=== PATIENT | female | born 1955 | race Caucasian/White ===

== ENCOUNTER 2019-04-25 | Emergency (ER) | payer SELFPAY ==
[~2019-04-25] MED LIST: GABAPENTIN300 M2 PO; GLIPIZIDE5 M2 PO; LISINOPRIL20 M1 PO; LOVASTATIN40 M1 PO; METFORMIN HCL1000 MG PO; NAPROXEN500 MG PO
[2019-04-25] MEDS ORDERED: ATORVASTATIN CA40 MG PO (04:28)
[2019-04-25] MEDS ORDERED: CLOPIDOGREL75 MG PO (04:29)
[2019-04-25] MEDS ORDERED: LOPID600 MG PO (04:30)
[2019-04-25] MEDS ORDERED: HYDROCHLOROT25 MG PO (04:31)
[2019-04-25 05:07] LABS: IMMATURE GRANULOCYTES 2.1 % (0.0-5.0); MEAN CELL VOLUME 81.1 fL CALC (80.0-100.0); MEAN CORPUSCULAR HGB 25.5 pG CALC (26.0-32.0); MEAN CORPUSCULAR HGB CONC 31.4 g/L CALC (32.0-36.0); NEUT# 18.32 thou/uL (2.00-7.15); RED BLOOD COUNT 4.44 mill/uL (4.20-5.60); RED CELL DISTRI WIDTH 15.2 % (11.5-15.5)
[2019-04-25 05:08] LABS: HEMOGLOBIN 11.3 g/dl (12.0-16.0)
[2019-04-25 05:15] LABS: CREATININE 1.8 mg/dL (0.5-1.0); MAGNESIUM 1.6 mg/dL (1.6-2.3)
[2019-04-25 05:17] LABS: ETHYL ALCOHOL 0 mg/dl (0-30)
[2019-04-25 05:21] LABS: ALBUMIN 4.2 g/dL (3.2-5.0); BILIRUBIN, TOTAL 0.6 mg/dL (0.0-1.4); POTASSIUM 5.6 mmol/l (3.5-5.1); TOTAL PROTEIN 7.7 g/dL (6.3-8.2)
[2019-04-25 05:29] LABS: URINE BILIRUBIN - DIPSTICK NEGATIVE (NEGATIVE); URINE BLOOD DIPSTICK MODERATE (NEGATIVE); URINE COLOR YELLOW; URINE GLUCOSE - DIPSTICK >=1000 mg/dL (NEGATIVE); URINE KETONE 15 mg/dL (NEGATIVE); URINE PROTEIN - DIPSTICK 100 mg/dL (NEG-TRACE); URINE UROBILINOGEN - DIPSTICK 0.2 E.U./dL (0.2)
[2019-04-25 05:33] LABS: BARBITURATES NEGATIVE (NEGATIVE); COCAINE NEGATIVE (NEGATIVE); METHADONE NEGATIVE (NEGATIVE); OXCYCODONE NEGATIVE (NEGATIVE); TETRAHYDROCANNABIONOL NEGATIVE (NEGATIVE); TRICYLIC ANTIDEPRESSANTS NEGATIVE (NEGATIVE)
[2019-04-25 05:35] LABS: URINE LEUK ESTERASE NEGATIVE (NEGATIVE); URINE NITRITE - DIPSTICK POSITIVE (Negative)
[2019-04-25 05:40] LABS: URINE EPITHELIAL CELLS MODERATE EPI/hpf (0-FEW); URINE RBC >100 RBC/hpf (0-5)
[2019-04-25 05:41] LABS: URINE BACTERIA MANY hpf
[2019-04-25 05:48] LABS: TSH, 3RD GENERATION 0.98 uIU/mL (0.47 - 4.68)
--- NOTE | 2019-04-26 17:15 | NUR ---
PRELIMINARY RESULTS CALLED TO BRIANNA POTTER AT [facility] (+) COCCI IN 1/4 VIALS. PHARMACY WILL FOLLOW FOR FINAL C+S.
== END 2019-04-25 09:14 | disposition short-term general hospital (02) | DRG 871 ==
PROVIDERS: Family Medicine
PROC: 0T9B70Z Drainage of Bladder with Drainage Device, Via Natural or Artificial Opening (ICD-10-PCS; principal; 2019-04-25)
DX: A41.9 Sepsis, unspecified organism (principal); I21.4 Non-ST elevation (NSTEMI) myocardial infarction; J18.9 Pneumonia, unspecified organism; N39.0 Urinary tract infection, site not specified; R65.20 Severe sepsis without septic shock; E11.65 Type 2 diabetes mellitus with hyperglycemia; I10 Essential (primary) hypertension; B96.20 Unspecified Escherichia coli [E. coli] as the cause of diseases classified elsewhere; Z79.84 Long term (current) use of oral hypoglycemic drugs
CPT/HCPCS: J0131; J0692; J1644

== ENCOUNTER 2019-07-29 16:30 | Emergency (ER) | payer MEDICAID ==
[~2019-07-29 16:30] MED LIST changes: +ATORVASTATIN CA40 MG PO; +CLOPIDOGREL75 MG PO; +HYDROCHLOROT25 MG PO; +LOPID600 MG PO
[2019-07-29] MEDS ORDERED: FUROSEMIDE20 MG PO (19:09)
[2019-07-29] MEDS ORDERED: ASPIRIN81 MG PO (19:09)
[2019-07-29] MEDS ORDERED: GLIPIZIDE10 MG PO (19:09)
[2019-07-29] MEDS ORDERED: K-TAB20 MEQ PO (19:09)
[2019-07-29] MEDS ORDERED: PROTONIX40 M4 PO (19:12)
[2019-07-29] MEDS ORDERED: FERRAPLUS 90 PO (19:13)
[2019-07-29] MEDS ORDERED: LISINOPRIL20 MG PO (19:14)
[2019-07-29 19:26] LABS: HEMATOCRIT 30.6 % (37.0-47.0); HEMOGLOBIN 9.5 g/dl (12.0-16.0); IMMATURE GRANULOCYTES 0.7 % (0.0-5.0); MEAN CELL VOLUME 84.1 fL CALC (80.0-100.0); MEAN CORPUSCULAR HGB 26.1 pG CALC (26.0-32.0); NEUT# 5.57 thou/uL (2.00-7.15); RED BLOOD COUNT 3.64 mill/uL (4.20-5.60); RED CELL DISTRI WIDTH 15.4 % (11.5-15.5)
[2019-07-29 19:40] LABS: ALBUMIN 3.8 g/dL (3.2-5.0); BILIRUBIN, TOTAL 0.2 mg/dL (0.0-1.4); POTASSIUM 5.4 mmol/l (3.5-5.1); TOTAL PROTEIN 6.9 g/dL (6.3-8.2)
[2019-07-29 20:00] VITALS: BP 168/96
== END 2019-07-29 22:06 | disposition home or self-care (01) | DRG 812 ==
LOC: ED 16:30
PROVIDERS: Family Medicine
DX: D64.9 Anemia, unspecified (principal); E11.22 Type 2 diabetes mellitus with diabetic chronic kidney disease; I12.9 Hypertensive chronic kidney disease with stage 1 through stage 4 chronic kidney disease, or unspecified chronic kidney disease; N18.9 Chronic kidney disease, unspecified; Z79.84 Long term (current) use of oral hypoglycemic drugs

== ENCOUNTER 2020-02-21 12:18 | Emergency (ER) | payer MEDICAID ==
[~2020-02-21] VITALS: Ht 154.9 cm; Wt 84.1 kg
[~2020-02-21 12:18] MED LIST changes: +ASPIRIN81 MG PO; +FERRAPLUS 90 PO; +FUROSEMIDE20 MG PO; +GLIPIZIDE10 MG PO; +K-TAB20 MEQ PO; +LISINOPRIL20 MG PO; +PROTONIX40 M4 PO
[2020-02-21 12:47] LABS: URINE BILIRUBIN - DIPSTICK NEGATIVE (NEGATIVE); URINE BLOOD DIPSTICK MODERATE (NEGATIVE); URINE COLOR YELLOW; URINE GLUCOSE - DIPSTICK NEGATIVE (NEGATIVE); URINE KETONE NEGATIVE (NEGATIVE); URINE LEUK ESTERASE NEGATIVE (NEGATIVE); URINE NITRITE - DIPSTICK NEGATIVE (Negative); URINE PH 5.5 (4.5-8.0); URINE PROTEIN - DIPSTICK NEGATIVE (NEG-TRACE); URINE UROBILINOGEN - DIPSTICK 0.2 E.U./dL (0.2)
[2020-02-21 13:05] LABS: ALBUMIN 4.3 g/dL (3.2-5.0); POTASSIUM 4.9 mmol/l (3.5-5.1); TOTAL PROTEIN 7.8 g/dL (6.3-8.2)
[2020-02-21 13:07] LABS: BILIRUBIN, TOTAL 0.3 mg/dL (0.0-1.4); HEMOGLOBIN 11.2 g/dl (12.0-16.0); IMMATURE GRANULOCYTES 0.6 % (0.0-5.0); MEAN CORPUSCULAR HGB 28.3 pG CALC (26.0-32.0); MEAN CORPUSCULAR HGB CONC 29.6 g/dL CAL (32.0-36.0); NEUT# 3.63 thou/uL (2.00-7.15); RED BLOOD COUNT 3.96 mill/uL (4.20-5.60)
[2020-02-21 13:10] LABS: HEMATOCRIT 37.9 % (37.0-47.0); MEAN CELL VOLUME 95.7 fL CALC (80.0-100.0)
[2020-02-21 13:34] LABS: TSH, 3RD GENERATION 0.66 uIU/mL (0.47 - 4.68)
[2020-02-21 14:10] VITALS: BP 154/65
[2020-02-21] MEDS ORDERED: ZPAK PO (14:30)
== END 2020-02-21 15:16 | disposition home or self-care (01) ==
LOC: ED 12:18
DX: E11.649 Type 2 diabetes mellitus with hypoglycemia without coma (principal); U07.1 COVID-19; J12.82 Pneumonia due to coronavirus disease 2019; I10 Essential (primary) hypertension; Z79.84 Long term (current) use of oral hypoglycemic drugs

== ENCOUNTER 2021-07-12 10:33 | Observation (INO) | payer MEDICAID ==
[2021-07-12] VITALS (16 sets, daily range): BP systolic 55–150; BP diastolic 11–63
[~2021-07-12] VITALS: Ht 154.9 cm; Wt 91.0 kg
[~2021-07-12 10:33] MED LIST changes: +ZPAK PO
[2021-07-12 12:47] LABS: MEAN CELL VOLUME 98.6 fL CALC (80.0-100.0); MEAN CORPUSCULAR HGB 29.3 pG CALC (26.0-32.0); MEAN CORPUSCULAR HGB CONC 29.8 g/dL CAL (32.0-36.0); NEUT# 4.74 thou/uL (2.00-7.15); RED BLOOD COUNT 2.08 mill/uL (4.20-5.60); RED CELL DISTRI WIDTH 14.4 % (11.5-15.5)
[2021-07-12 13:03] LABS: BILIRUBIN, TOTAL 0.2 mg/dL (0.0-1.4); POTASSIUM 4.7 mmol/l (3.5-5.1); TOTAL PROTEIN 7.3 g/dL (6.3-8.2)
[2021-07-12 13:04] LABS: CREATININE 4.9 mg/dL (0.5-1.0)
[2021-07-12 13:05] LABS: HEMATOCRIT 20.5 % (37.0-47.0); HEMOGLOBIN 6.1 g/dl (12.0-16.0)
[2021-07-13 00:17] VITALS: BP 155/54
[2021-07-13 00:52] VITALS: BP 144/49
[2021-07-13 03:15] VITALS: BP 141/48
[2021-07-13 05:30] LABS: MEAN CELL VOLUME 93.8 fL CALC (80.0-100.0); MEAN CORPUSCULAR HGB 29.6 pG CALC (26.0-32.0); MEAN CORPUSCULAR HGB CONC 31.6 g/dL CAL (32.0-36.0); RED BLOOD COUNT 4.22 mill/uL (4.20-5.60); RED CELL DISTRI WIDTH 14.3 % (11.5-15.5)
[2021-07-13 05:44] LABS: HEMATOCRIT 39.6 % (37.0-47.0); HEMOGLOBIN 12.5 g/dl (12.0-16.0)
[2021-07-13 05:47] LABS: CREATININE 4.8 mg/dL (0.5-1.0)
[2021-07-13 05:52] LABS: POTASSIUM 4.9 mmol/l (3.5-5.1)
[2021-07-13 07:12] VITALS: BP 111/54
[2021-07-13 10:18] VITALS: BP 133/68
[2021-07-13] MEDS ORDERED: METFORMIN500 M2 PO ×2 (10:52→13:33)
[2021-07-13] MEDS ORDERED: LASIX 40 MG TAB40 MG PO (11:04)
[2021-07-14] VITALS (7 sets, daily range): BP systolic 139–168; BP diastolic 59–75
[2021-07-14 05:20] LABS: ALBUMIN 3.2 g/dL (3.2-5.0); CREATININE 4.5 mg/dL (0.5-1.0)
[2021-07-14 05:25] LABS: POTASSIUM 4.5 mmol/l (3.5-5.1)
[2021-07-14 13:39] LABS: URINE BILIRUBIN - DIPSTICK NEGATIVE (NEGATIVE); URINE BLOOD DIPSTICK LARGE (NEGATIVE); URINE COLOR YELLOW; URINE GLUCOSE - DIPSTICK 100 mg/dL (NEGATIVE); URINE KETONE NEGATIVE (NEGATIVE); URINE LEUK ESTERASE SMALL (Negative); URINE NITRITE - DIPSTICK NEGATIVE (Negative); URINE PH 5.5 (4.5-8.0); URINE PROTEIN - DIPSTICK 30 mg/dL (NEG-TRACE); URINE SPECIFIC GRAVITY 1.015; URINE UROBILINOGEN - DIPSTICK 0.2 E.U./dL (0.2)
[2021-07-14 13:40] LABS: URINE CLARITY SL CLOUDY; URINE WBC 0-2 WBC/hpf (0-5)
[2021-07-14 13:41] LABS: URINE EPITHELIAL CELLS FEW EPI/hpf (0-FEW); URINE MUCUS FEW hpf (NONE-FEW)
[2021-07-15 04:16] VITALS: BP 152/72
[2021-07-15 06:40] LABS: HEMOGLOBIN 12.6 g/dl (12.0-16.0); IMMATURE GRANULOCYTES 1.6 % (0.0-5.0); MEAN CELL VOLUME 92.2 fL CALC (80.0-100.0); MEAN CORPUSCULAR HGB 29.8 pG CALC (26.0-32.0); MEAN CORPUSCULAR HGB CONC 32.3 g/dL CAL (32.0-36.0); NEUT# 4.74 thou/uL (2.00-7.15); RED BLOOD COUNT 4.23 mill/uL (4.20-5.60); RED CELL DISTRI WIDTH 14.9 % (11.5-15.5)
[2021-07-15 06:44] VITALS: BP 171/74
[2021-07-15 06:44] LABS: ALBUMIN 3.3 g/dL (3.2-5.0); CREATININE 3.7 mg/dL (0.5-1.0); MAGNESIUM 1.9 mg/dL (1.6-2.3); POTASSIUM 4.3 mmol/l (3.5-5.1)
[2021-07-15 07:00] VITALS: BP 171/74
[2021-07-15 08:51] VITALS: BP 172/77
[2021-07-15 10:05] VITALS: BP 155/64
[2021-07-15] MEDS ORDERED: AMLODIPINE BESYL5 MG PO (10:50)
[2021-07-15] MEDS ORDERED: SODIUM BICAR650 MG PO (10:51)
== END 2021-07-15 12:25 | disposition home or self-care (01) ==
LOC: ED 10:33 → ED-I 13:00 → ED 13:33 → MS2 13:34
PROVIDERS: Family Medicine; Internal Medicine Nephrology; ADMIT Hospitalist; ATTEND Hospitalist
DX: I12.9 Hypertensive chronic kidney disease with stage 1 through stage 4 chronic kidney disease, or unspecified chronic kidney disease (principal); D63.1 Anemia in chronic kidney disease; N17.0 Acute kidney failure with tubular necrosis; E11.22 Type 2 diabetes mellitus with diabetic chronic kidney disease; N18.4 Chronic kidney disease, stage 4 (severe); N25.81 Secondary hyperparathyroidism of renal origin; S93.402A Sprain of unspecified ligament of left ankle, initial encounter; E87.2 Acidosis; I25.10 Atherosclerotic heart disease of native coronary artery without angina pectoris; W01.0XXA Fall on same level from slipping, tripping and stumbling without subsequent striking against object, initial encounter; Z79.84 Long term (current) use of oral hypoglycemic drugs; Z95.1 Presence of aortocoronary bypass graft
CPT/HCPCS: G0378; P9016

== ENCOUNTER 2021-10-13 19:06 | Emergency (ER) | payer MEDICAID ==
[2021-10-13] VITALS (17 sets, daily range): BP systolic 96–156; BP diastolic 48–119
[~2021-10-13] VITALS: Ht 154.9 cm; Wt 85.5 kg
[~2021-10-13 19:06] MED LIST changes: +AMLODIPINE BESYL5 MG PO; +LASIX 40 MG TAB40 MG PO; +METFORMIN500 M2 PO; +SODIUM BICAR650 MG PO
[2021-10-13 19:50] LABS: IMMATURE GRANULOCYTES 1.3 % (0.0-5.0); MEAN CELL VOLUME 94.5 fL CALC (80.0-100.0); MEAN CORPUSCULAR HGB 28.3 pG CALC (26.0-32.0); NEUT# 5.23 thou/uL (2.00-7.15); RED BLOOD COUNT 3.07 mill/uL (4.20-5.60); RED CELL DISTRI WIDTH 15.6 % (11.5-15.5)
[2021-10-13 19:52] LABS: HEMOGLOBIN 8.7 g/dl (12.0-16.0)
[2021-10-13 20:01] LABS: CREATININE 3.1 mg/dL (0.5-1.0); TOTAL PROTEIN 7.5 g/dL (6.3-8.2)
[2021-10-13 20:07] LABS: BILIRUBIN, TOTAL 0.3 mg/dL (0.0-1.4); POTASSIUM 5.3 mmol/l (3.5-5.1)
[2021-10-13 20:40] LABS: URINE BILIRUBIN - DIPSTICK NEGATIVE (NEGATIVE); URINE BLOOD DIPSTICK NEGATIVE (NEGATIVE); URINE COLOR YELLOW; URINE GLUCOSE - DIPSTICK >=1000 mg/dL (NEGATIVE); URINE KETONE NEGATIVE (NEGATIVE); URINE LEUK ESTERASE NEGATIVE (NEGATIVE); URINE PROTEIN - DIPSTICK TRACE mg/dL (NEG-TRACE); URINE UROBILINOGEN - DIPSTICK 0.2 E.U./dL (0.2)
[2021-10-13 20:41] LABS: URINE NITRITE - DIPSTICK POSITIVE (Negative)
[2021-10-13 20:47] LABS: URINE RBC 0-2 RBC/hpf (0-5)
[2021-10-13 20:48] LABS: URINE BACTERIA MODERATE hpf; URINE SQUAMOUS EPITHELIAL CELL FEW EPI/hpf (0-FEW)
== END 2021-10-13 23:45 | disposition short-term general hospital (02) ==
LOC: ED 19:06
PROVIDERS: Family Medicine
DX: S72.301A Unspecified fracture of shaft of right femur, initial encounter for closed fracture (principal); I48.91 Unspecified atrial fibrillation; J98.8 Other specified respiratory disorders; I10 Essential (primary) hypertension; E11.9 Type 2 diabetes mellitus without complications; W19.XXXA Unspecified fall, initial encounter; Y92.009 Unspecified place in unspecified non-institutional (private) residence as the place of occurrence of the external cause; Z79.82 Long term (current) use of aspirin; Z95.1 Presence of aortocoronary bypass graft; Z79.02 Long term (current) use of antithrombotics/antiplatelets; Z20.822 Contact with and (suspected) exposure to COVID-19